=== PATIENT | female | born 1970 | race Caucasian/White ===

== ENCOUNTER 2018-08-31 12:29 | Emergency (ER) | payer BC ==
[~2018-08-31] VITALS: Ht 170.2 cm; Wt 83.8 kg
[2018-08-31 12:51] VITALS: BP 138/75
[2018-08-31] MEDS ORDERED: LIDOCAINE-MPF 2%, 2ML ONE ×2 (13:19→13:20)
[2018-08-31] MEDS ORDERED: LIDOCAINE-MPF 2%, 2ML INFIL ONE (13:30)
== END 2018-08-31 14:38 | disposition home or self-care (01) ==
LOC: ED 14:32
DX: T17.0XXA Foreign body in nasal sinus, initial encounter (principal); I10 Essential (primary) hypertension; X58.XXXA Exposure to other specified factors, initial encounter; Y93.89 Activity, other specified; Y92.89 Other specified places as the place of occurrence of the external cause; Y99.8 Other external cause status
CPT/HCPCS: 99284